=== PATIENT | male | born 1945 | race Caucasian/White ===

== ENCOUNTER 2025-06-21 20:17 | Inpatient (IN) | payer MEDICARE ==
[~2025-06-21] VITALS: Ht 165.1 cm; Wt 72.3 kg
[2025-06-21 20:29] VITALS: O2SAT 97
[2025-06-21] MEDS: SODIUM CHLORIDE 0.9% 1,000 ML IV ONE (21:15)
[2025-06-21 23:35] LABS: HEMATOCRIT. 43.3 % (42.0-52.0); HEMOGLOBIN. 14.3 g/dL (14.0-18.0); MEAN PLATELET VOLUME 8.6 fl (7.4-10.4); PLATELET 144 x1000/uL (130-400); RED BLOOD CELL COUNT 4.67 mill/uL (4.7-6.1); RED CELL DISTRIBUTION WIDTH 15.6 % (11.6-14.6)
[2025-06-21 23:51] LABS: CREATININE 2.9 mg/dL (0.6-1.3); UREA NITROGEN BLOOD 84.0 mg/dL (9-23)
[2025-06-21 23:52] LABS: TROPONIN I HIGH SENSITIVITY 39 ng/L (3.0-53)
[2025-06-22 02:35] LABS: TROPONIN I HIGH SENSITIVITY 44 ng/L (3.0-53)
[2025-06-22 03:20] LABS: LYMPHOCYTES % MANUAL 9.0 % (20.0-50.0); MONOCYTES % MANUAL 9.0 % (2.0-8.0); NEUTROPHILS % MANUAL 82.0 % (45.0-75.0); PLATELET ESTIMATE NORMAL
[2025-06-22 04:30] VITALS: BP 154/68; PULSE 98; RESP 18; TEMP 36.4; O2SAT 97
[2025-06-22 08:30] VITALS: BP 159/98; PULSE 79; RESP 20; TEMP 36.9; O2SAT 99
[2025-06-22] MEDS ORDERED: ONDANSETRON HCL 4MG/2ML INJ IV PRN (12:00)
[2025-06-22] MEDS: AMLODIPINE 10MG TABLET PO SCH (12:00)
[2025-06-22] MEDS ORDERED: SODIUM CHLORIDE 0.45% 1,000 ML IV SCH (12:00)
[2025-06-22 12:30] VITALS: BP 94/70; PULSE 109; RESP 18; TEMP 36.3; O2SAT 95
[2025-06-22 16:30] VITALS: BP 133/91; PULSE 94; RESP 20; TEMP 35.8; O2SAT 97
[2025-06-22] MEDS: SODIUM CHLORIDE 0.45% 1,000 ML IV SCH (16:30)
[2025-06-22 18:33] VITALS: BP 133/91; PULSE 94; RESP 20; TEMP 35.8064
[2025-06-22 20:00] VITALS: BP 130/77; PULSE 87; RESP 16; TEMP 36.6; O2SAT 97
[2025-06-23] VITALS: BP 144/82; PULSE 78; RESP 18; TEMP 36.6; O2SAT 92
[2025-06-23 04:02] VITALS: BP 143/78; PULSE 80; RESP 16; TEMP 36.6; O2SAT 96
[2025-06-23 08:00] VITALS: BP 140/83; PULSE 80; RESP 19; TEMP 36.4; O2SAT 98
[2025-06-23] MEDS: FINASTERIDE 5MG TABLET PO SCH (10:07)
[2025-06-23] MEDS: TAMSULOSIN HCL 0.4MG SR CAPSULE PO SCH (10:08)
[2025-06-23 12:00] VITALS: BP 132/76; PULSE 70; RESP 19; TEMP 36.5; O2SAT 97
[2025-06-23 16:00] VITALS: BP 143/84; PULSE 84; RESP 19; TEMP 36.7; O2SAT 98
[2025-06-23 20:00] VITALS: BP 142/72; PULSE 75; RESP 16; TEMP 36.5; O2SAT 94
[2025-06-23 20:41] LABS: CLARITY URINE CLOUDY (CLEAR); COLOR URINE YELLOW (YELLOW); GLUCOSE URINE NEGATIVE (NEGATIVE); KETONES URINE NEGATIVE (NEGATIVE); LEUKOCYTE ESTERASE URINE 2+ (NEGATIVE); NITRITE URINE NEGATIVE (NEGATIVE); OCCULT BLOOD URINE 3+ (NEGATIVE); PH URINE 5.5 (4.5-8.0); PROTEIN URINE 1+ (NEGATIVE); SPECIFIC GRAVITY URINE 1.020 (1.005-1.030); UROBILINOGEN URINE 0.2 E.U./dL (0.2-1.0)
[2025-06-23 21:11] LABS: BACTERIA URINE 2+; SQUAMOUS EPITHELIAL CELL URINE FEW /lpf (RARE/1+)
[2025-06-23 21:12] LABS: RBC URINE 25-50 /hpf (0-2)
[2025-06-23 21:13] LABS: FINE GRANULAR CASTS URINE 0-5 /lpf; HYALINE CASTS URINE 0-5 /lpf
[2025-06-24] VITALS: BP 141/76; PULSE 78; RESP 16; TEMP 36.7; O2SAT 94
[2025-06-24 04:00] VITALS: BP 144/75; PULSE 78; RESP 16; TEMP 36.6; O2SAT 94
[2025-06-24 08:00] VITALS: BP 149/71; PULSE 73; RESP 19; TEMP 36.7; O2SAT 97
[2025-06-24] MEDS: NEOMY SULF/BACITRAC ZN/POLY OINT 28GM TOP SCH (09:00)
[2025-06-24 12:15] VITALS: BP 123/72; PULSE 70; RESP 19; TEMP 36.7; O2SAT 97
[2025-06-24 16:00] VITALS: BP 158/84; PULSE 90; RESP 19; TEMP 36.6; O2SAT 96
[2025-06-24 20:00] VITALS: BP 151/86; PULSE 85; RESP 18; TEMP 36.4; O2SAT 95
[2025-06-25] VITALS (8 sets, daily range): BP systolic 106–147; BP diastolic 55–80; PULSE 79–109; RESP 18–20; TEMP 36.1–36.9; O2SAT 95–99
[2025-06-26] VITALS: BP 139/80; PULSE 89; RESP 18; TEMP 36.7; O2SAT 97
[2025-06-26 00:15] LABS: BASOPHILS % 0.2 % (0.0-2.0); EOSINOPHILS % 0.4 % (0.0-5.0); HEMATOCRIT. 42.1 % (42.0-52.0); HEMOGLOBIN. 13.8 g/dL (14.0-18.0); LYMPHOCYTES % 9.8 % (20.0-50.0); MEAN PLATELET VOLUME 8.0 fl (7.4-10.4); MONOCYTES % 9.1 % (2.0-8.0); NEUTROPHILS % 80.5 % (40.0-76.0); PLATELET 168 x1000/uL (130-400); RED BLOOD CELL COUNT 4.53 mill/uL (4.7-6.1); RED CELL DISTRIBUTION WIDTH 15.0 % (11.6-14.6)
[2025-06-26 00:33] LABS: UREA NITROGEN BLOOD 34 mg/dL (9-23)
[2025-06-26 00:36] LABS: PHOSPHORUS 2.1 mg/dL (2.5-4.9)
[2025-06-26 00:39] LABS: CREATININE 1.4 mg/dL (0.6-1.3)
[2025-06-26 04:00] VITALS: BP 129/69; PULSE 85; RESP 18; TEMP 36.9; O2SAT 97
[2025-06-26 07:02] LABS: BASOPHILS % 0.2 % (0.0-2.0); EOSINOPHILS % 0.4 % (0.0-5.0); HEMATOCRIT. 41.2 % (42.0-52.0); HEMOGLOBIN. 13.9 g/dL (14.0-18.0); LYMPHOCYTES % 9.3 % (20.0-50.0); MEAN PLATELET VOLUME 8.4 fl (7.4-10.4); MONOCYTES % 9.2 % (2.0-8.0); NEUTROPHILS % 80.9 % (40.0-76.0); PLATELET 176 x1000/uL (130-400); RED BLOOD CELL COUNT 4.49 mill/uL (4.7-6.1); RED CELL DISTRIBUTION WIDTH 15.2 % (11.6-14.6)
[2025-06-26 07:47] LABS: CREATININE 1.2 mg/dL (0.6-1.3); UREA NITROGEN BLOOD 34 mg/dL (9-23)
[2025-06-26 07:49] LABS: PHOSPHORUS 2.5 mg/dL (2.5-4.9)
[2025-06-26 08:00] VITALS: BP 145/78; PULSE 83; RESP 19; TEMP 36.5; O2SAT 97
[2025-06-26 12:00] VITALS: BP 122/63; PULSE 65; RESP 19; TEMP 36.7; O2SAT 96
[2025-06-26 16:00] VITALS: BP 127/74; PULSE 79; RESP 20; TEMP 36.8; O2SAT 98
[2025-06-26 20:00] VITALS: BP_SYST 118; BP_SYST 120; BP_SYST 125; BP_DIAS 72; BP_DIAS 77; BP_DIAS 80; PULSE 80; RESP 20; TEMP 37; O2SAT 97
[2025-06-27] VITALS: BP 118/66; PULSE 70; RESP 20; TEMP 36.8; O2SAT 98
[2025-06-27 04:00] VITALS: BP 155/74; PULSE 90; RESP 18; TEMP 37; O2SAT 97
[2025-06-27 08:00] VITALS: BP 123/61; PULSE 82; RESP 20; TEMP 36.5; O2SAT 98
[2025-06-27 12:00] VITALS: BP 114/56; PULSE 79; RESP 20; TEMP 36.3; O2SAT 98
[2025-06-27 16:00] VITALS: BP 122/62; PULSE 86; RESP 20; TEMP 36.7; O2SAT 97
[2025-06-27 20:00] VITALS: BP 116/52; PULSE 94; RESP 18; TEMP 36.7; O2SAT 97
[2025-06-27] MEDS: ZOLPIDEM TARTRATE 5MG TABLET PO PRN (21:35)
[2025-06-27] MEDS: ACETAMINOPHEN 325MG TABLET PO PRN (21:35)
[2025-06-28] VITALS: BP 129/79; PULSE 82; RESP 20; TEMP 36.7; O2SAT 98
[2025-06-28 04:00] VITALS: BP 109/77; PULSE 88; RESP 18; TEMP 37; O2SAT 97
[2025-06-28 08:00] VITALS: BP 139/64; PULSE 82; RESP 18; TEMP 36.6; O2SAT 96
[2025-06-28 12:00] VITALS: BP_SYST 118; BP_SYST 98; BP_DIAS 53; BP_DIAS 58; PULSE 95; RESP 18; TEMP 36.7; O2SAT 93
[2025-06-28 16:00] VITALS: BP 126/64; PULSE 64; RESP 18; TEMP 36.6; O2SAT 98
[2025-06-28 20:00] VITALS: BP 111/56; PULSE 93; RESP 18; TEMP 37.3; O2SAT 96
[2025-06-29] VITALS: BP 130/69; PULSE 94; RESP 18; TEMP 36.8; O2SAT 95
[2025-06-29 04:00] VITALS: BP 128/71; PULSE 72; RESP 18; TEMP 36.6; O2SAT 96
[2025-06-29 08:00] VITALS: BP 128/66; PULSE 91; RESP 17; TEMP 36.7; O2SAT 96
[2025-06-29 12:00] VITALS: BP 130/65; PULSE 90; RESP 18; TEMP 36.7; O2SAT 96
[2025-06-29 12:05] LABS: CREATININE 1.4 mg/dL (0.6-1.3); UREA NITROGEN BLOOD 29 mg/dL (9-23)
[2025-06-29 12:07] LABS: PHOSPHORUS 1.7 mg/dL (2.5-4.9)
[2025-06-29 12:10] LABS: BASOPHILS % 0.4 % (0.0-2.0); EOSINOPHILS % 1.1 % (0.0-5.0); HEMATOCRIT. 38.7 % (42.0-52.0); HEMOGLOBIN. 13.1 g/dL (14.0-18.0); LYMPHOCYTES % 8.3 % (20.0-50.0); MEAN PLATELET VOLUME 8.2 fl (7.4-10.4); MONOCYTES % 6.2 % (2.0-8.0); NEUTROPHILS % 84.0 % (40.0-76.0); PLATELET 235 x1000/uL (130-400); RED BLOOD CELL COUNT 4.25 mill/uL (4.7-6.1); RED CELL DISTRIBUTION WIDTH 14.9 % (11.6-14.6)
[2025-06-29 16:00] VITALS: BP 136/68; PULSE 91; RESP 19; TEMP 36.8; O2SAT 97
[2025-06-29] MEDS: MIDODRINE HCL 5MG TABLET PO SCH (17:00)
[2025-06-30] VITALS: BP 127/70; PULSE 86; RESP 19; TEMP 36.6; O2SAT 98
[2025-06-30 08:00] VITALS: BP 126/68; PULSE 84; RESP 18; TEMP 36.5; O2SAT 98
[2025-06-30] MEDS: POTASSIUM PHOSPHATE 20 MMOL in DEXT 5% WATER 243.3333 ML IV NR (10:00)
[2025-06-30] MEDS: MAGNESIUM 2 G PREMIX 50 ML IV NR (12:56)
[2025-06-30 13:14] LABS: BASOPHILS % 0.5 % (0.0-2.0); EOSINOPHILS % 1.6 % (0.0-5.0); HEMATOCRIT. 34.9 % (42.0-52.0); HEMOGLOBIN. 11.6 g/dL (14.0-18.0); LYMPHOCYTES % 11.6 % (20.0-50.0); MEAN PLATELET VOLUME 7.6 fl (7.4-10.4); MONOCYTES % 9.6 % (2.0-8.0); NEUTROPHILS % 76.7 % (40.0-76.0); PLATELET 221 x1000/uL (130-400); RED BLOOD CELL COUNT 3.83 mill/uL (4.7-6.1); RED CELL DISTRIBUTION WIDTH 15.1 % (11.6-14.6)
[2025-06-30 13:34] LABS: CREATININE 1.1 mg/dL (0.6-1.3); UREA NITROGEN BLOOD 24 mg/dL (9-23)
[2025-06-30 13:36] LABS: PHOSPHORUS 2.5 mg/dL (2.5-4.9)
[2025-06-30 16:00] VITALS: BP 138/72; PULSE 89; RESP 18; TEMP 36.6; O2SAT 98
[2025-06-30 17:26] VITALS: BP 145/72; PULSE 80; RESP 16; TEMP 97.5
[2025-06-30 20:00] VITALS: BP 131/63; PULSE 85; RESP 18; TEMP 36.6; O2SAT 95
== END 2025-06-30 20:00 | DRG 557 ==
LOC: ER 20:17 → 8WST 23:36 → EDBEDREQTM 23:59 → EDBEDREQ 23:59 → ENRESERV 06-22 03:53 → 4WST 06-28 22:22
PROVIDERS: ADMIT Internal Medicine; ATTEND Internal Medicine
DX: M62.82 Rhabdomyolysis (principal); G93.41 Metabolic encephalopathy; N13.8 Other obstructive and reflux uropathy; R13.10 Dysphagia, unspecified; N17.9 Acute kidney failure, unspecified; N39.0 Urinary tract infection, site not specified; F03.90 Unspecified dementia, unspecified severity, without behavioral disturbance, psychotic disturbance, mood disturbance, and anxiety; S00.81XD Abrasion of other part of head, subsequent encounter; N32.0 Bladder-neck obstruction; N40.1 Benign prostatic hyperplasia with lower urinary tract symptoms; N42.89 Other specified disorders of prostate; R73.9 Hyperglycemia, unspecified; R53.81 Other malaise; R26.9 Unspecified abnormalities of gait and mobility; R55 Syncope and collapse; G89.29 Other chronic pain; R41.89 Other symptoms and signs involving cognitive functions and awareness; W10.1XXD Fall (on)(from) sidewalk curb, subsequent encounter; R74.8 Abnormal levels of other serum enzymes; Z60.2 Problems related to living alone; S51.811D Laceration without foreign body of right forearm, subsequent encounter; S80.02XD Contusion of left knee, subsequent encounter; S80.01XD Contusion of right knee, subsequent encounter; S30.811D Abrasion of abdominal wall, subsequent encounter; S50.312D Abrasion of left elbow, subsequent encounter; Z82.49 Family history of ischemic heart disease and other diseases of the circulatory system; Z87.891 Personal history of nicotine dependence; Z91.81 History of falling; Z79.899 Other long term (current) drug therapy
CPT/HCPCS: 36415; 71045; 72170; 73030; 73060; 73080; 73090; 73110; 80048; 81003; 82140; 82550; 83735; 84100; 84484; 85025; 92523; 97110; 97162; 97166; 97168; 97530; 97535; 99285; A4606; J3475; J3490; J7030; J7060